=== PATIENT | male | born 1975 | race Caucasian/White ===

== ENCOUNTER 2023-10-16 22:05 | Emergency (ER) | payer SELFPAY ==
[~2023-10-16] VITALS: Ht 177.8 cm; Wt 90.0 kg
[2023-10-16 22:09] VITALS: O2SAT 97
[2023-10-17] MEDS ORDERED: HYDR-4001 MT (00:24)
[2023-10-17] MEDS ORDERED: IBUP-2029 MT (00:24)
[2023-10-17 00:45] VITALS: BP 135/88; PULSE 85; RESP 16; TEMP 98.9
== END 2023-10-17 01:41 | disposition home or self-care (01) ==
LOC: ER 22:05 → EDBD 22:05 → ER 10-17 01:41
DX: S82.61XA Displaced fracture of lateral malleolus of right fibula, initial encounter for closed fracture (principal); Z88.0 Allergy status to penicillin; W18.39XA Other fall on same level, initial encounter; Y93.89 Activity, other specified; Y92.89 Other specified places as the place of occurrence of the external cause; Y99.8 Other external cause status
CPT/HCPCS: 29515; 73610; 99283